=== PATIENT | female | born 1970 | race African-American/Black ===

== ENCOUNTER 2016-12-16 18:29 | Emergency (ER) | payer OTHER ==
--- NOTE | ~2016-12-16 | CT114 ---
[facility] A Service of [facility] RADIOLOGY TEXT RESULTS PATIENT: MYRIAM GORDON LOCATION: SED : 70 UNIT #: [id number] AGE: [address]: Rodríguez Berrios MD SEX: F ORDER DR: [id number] [address] [address] [id number] E MR#: [id number] Acc #: [id number] NAME: MYRIAM GORDON : 1970 SEX: F STUDY DATE/TIME: 12/16/2016 20:30 UNIT: SED ROOM: STUDY DESCRIPTION: CT Soft Tissue Neck W Cont Attending Physician: Rodríguez Berrios M.D. Ordering Physician: Physician Non-Staff Primary Care Physician: Irving Miller M.D. MEDICAL IMAGING REPORT This report is preliminary unless electronic signature is present. EXAM CT soft tissue neck with contrast. HISTORY Sore throat for 3 days. Patient states was on Z-pack 3 weeks ago for a sore throat. TECHNIQUE This CT exam was performed with one or more of the following radiation dose reduction techniques: automatic exposure control, adjustment of mA and/or kV according to patient size, and iterative reconstruction. FINDINGS CT of the neck performed with administration of 100 mL Isovue-370. Sagittal and coronal reconstructions performed. No prior dedicated CT of the neck for comparison. There is a CT of the neck angiography dated 09/26/2010. Visualized brain normal. The intraorbital soft tissues are unremarkable. The nasopharyngeal soft tissues are coapted at the level of the nasal choana but appear intrinsically normal. The oropharyngeal soft tissues are unremarkable. Pharyngeal mucosal, retropharyngeal spaces unremarkable. The parapharyngeal fat planes are preserved. The larynx, subglottic airway, visualized superior mediastinum, lung apices unremarkable. Thyroid, submandibular parotid glands unremarkable. No cervical adenopathy. The vascular structures are unremarkable. Complete opacification right sphenoid sinus. Visualized bones of calvaria intact. Nasal bones intact. Nasal septum deviates minimally to the left. Zygoma, zygomatic arches, pterygoid plates, maxillary sinus mcknight intact. Mandible intact. Scattered dental fillings. Multilevel degenerative changes in the cervical spine. Multilevel prominent anterior osteophytes. IMPRESSION 1. There is no clearly acute soft tissue abnormality in the STS. [facility] A Service of [facility] & [facility] RADIOLOGY TEXT RESULTS PATIENT: MYRIAM GORDON LOCATION: [facility] [place] : 70 UNIT #: [id number] AGE: [address]: Rodríguez Berrios MD SEX: F ORDER DR: nasopharyngeal, oropharyngeal, pharyngeal regions. Larynx, subglottic airway unremarkable. The superficial cervical soft tissues show no acute abnormality. See full details in body of report above. The nasopharyngeal soft tissues are coapted at level of the nasal choana but there is no intrinsic abnormality suggested. 2. Degenerative change in the cervical spine with prominent osteophytes at multiple levels. 3. Complete opacification right sphenoid sinus. Other paranasal sinuses and visualized mastoid air cells clear. 4. Visualized pulmonary parenchyma is unremarkable. 5. See remainder of ancillary findings in body of report above. Dictated by... Vinicius Gramajo M.D. THIS IS AN ELECTRONICALLY VERIFIED REPORT Vinicius Gramajo M.D. at 12/16/2016 11:32 PM GEORGES/vinod TD: 12/16/2016 23:07 JOB #: [id number] MEDICAL IMAGING REPORT Page 1 of 1
[~2016-12-16 18:29] MED LIST: ALBUTEROL17 G1 IH; ALBUTEROL17 GM; AMBIEN12.5 MG PO; B-121000 MC1 PO; BACLOFEN10 MG PO; BUPROPION XL300 M1 PO; DILANTIN PO; DOCUSATE SODIU100 MG PO; FERRO-TIME325 MG PO; FERROUS SULFATE PO; FLEXERIL10 MG PO; GEODON60 MG PO; HYDROCHLOROTHIA25 MG PO; HYDROCODON-ACE1 EAC9 PO; K-DUR20 ME2 PO; KLONOPIN0.5 M3 PO; LASIX20 MG PO; LEVOTHYROXINE50 MC1 PO; MEDROL DOSEPAK4 MG PO; MEDROL PO; METOPROLOL TAR25 MG PO; NORVASC10 MG PO; PREDNISONE PO; PROZAC40 MG PO; REQUIP1 MG PO; ROBITUSSIN A-C10 ML PO; TYLOX1 CAP 5/50 DOB; VIBRAMYCIN100 M1 PO; VITAMIN D35000 UNIT PO; VOLTAREN50 MG PO; ZANAFLEX4 M1 PO; ZITHROMAX PO; ZITHROMAX1 G/PKT PO
[2016-12-16 19:44] LABS: BASOPHIL# 0.1 X10e3 (0-0.3); BASOPHIL% 1.1 % (0-2.5); EOSINOPHIL# 0.1 X10e3 (0-0.7); EOSINOPHIL% 2.1 % (0.0-7.0); HEMATOCRIT 41.9 % (35.0-45.0); HEMOGLOBIN 13.8 gm/dL (12.0-16.0); LYMPHOCYTE# 2.6 X10e3 (1.0-3.5); LYMPHOCYTE% 37.8 % (17.0-45.0); MEAN CELL VOLUME 94.2 FL (83-96); MEAN CORPUSCULAR HGB CONC 32.9 g/dL (30-36); MEAN PLATELET VOLUME 6.5 FL (6.5-11.5); MONOCYTE# 0.6 X10e3 (0-1.0); MONOCYTE% 8.8 % (3.0-12.0); NEUTROPHIL# 3.5 X10e3 (1.5-7.1); NEUTROPHIL% 50.2 % (40-75); PLATELET COUNT 285 X10e3 (140-420); RED BLOOD COUNT 4.44 X10e (3.90-5.30); RED CELL DISTRIBUTION WIDTH 16.1 % (11.0-15.5); WHITE BLOOD COUNT 6.9 X10e3 (4.0-10.5)
[2016-12-16 19:47] LABS: DIFF IND NO
[2016-12-16 20:02] LABS: BUN/CREATININE RATIO 13.33; CALCIUM SERUM 8.4 mg/dL (8.4-10.2); CREATININE SERUM 0.6 mg/dL (0.6-1.4); GLOM FILT RATE Estimated 126.7 mL/min (>60); POTASSIUM 4.2 mmol/L (3.5-5.1)
== END 2016-12-16 23:09 | disposition home or self-care (01) ==
LOC: SED 18:29
PROVIDERS: Physician Assistant
DX: J02.9 Acute pharyngitis, unspecified (principal); I10 Essential (primary) hypertension; J45.909 Unspecified asthma, uncomplicated; F17.210 Nicotine dependence, cigarettes, uncomplicated; Z91.040 Latex allergy status; Z79.899 Other long term (current) drug therapy
CPT/HCPCS: 36415; 70491; 80048; 85025; 87651; 99283; Q9967